=== PATIENT | male | born 2000 | race Caucasian/White ===

== ENCOUNTER 2023-08-29 19:50 | Emergency (ER) | payer MEDICAID, SELFPAY ==
[2023-08-29 20:08] VITALS: BP 157/90; PULSE 124; TEMP 38.5; O2SAT 97; BMI 30.5
--- NOTE | 2023-08-29 20:15 | ED.SKABFB1 ---
HPI - Skin/Abscess/Foreign Bdy General Chief complaint: Skin/Abscess/Foreign Body Stated complaint: Rash Time Seen by Provider: 08/29/23 20:09 History of Present Illness HPI narrative: patient presents complaining of swelling and redness of his left FA after he was stung by bee yesterday. States the swelling and redness have increased. no fever also states he noticed an infected ingrown hair right inguinal area yesterday. Waited to see if it would improve. It has not so he wants it evaluated as well. No abdominal pain or systemic sypmtoms Related Data Allergies Allergy/AdvReac Type Severity Reaction Status Date / Time bee pollen Allergy Redness of Verified 08/29/23 20:08 Skin Review of Systems ROS Status of ROS 10 or more systems reviewed and unremarkable except as noted in history and below Exam Constitutional Vital Signs, click to edit/add: Last Vital Signs Temp 100.8 F H 08/29/23 21:07 Pulse 124 H 08/29/23 20:08 Resp 20 08/29/23 20:08 BP 157/90 H 08/29/23 20:08 Pulse Ox 97 08/29/23 20:08 O2 Del Method Room Air 08/29/23 20:08 Common normals: no apparent distress, average body habitus, oriented x3, no limitations, healthy appearing, alert and well nourished [facility] Common normals: normocephalic and head/scalp atraumatic Eye Common normals: PERRL, EOMs intact bilaterally and conjunctivae normal Respiratory Common normals: normal respiratory effort, no retractions, no use of accessory muscles and clear to auscultation bilaterally Cardio Common normals: regular rate, regular rhythm, S1 normal heart sound and S2 normal heart sound Other: right groin near buttocks has superficial abscess that is firm and not fluctuant Extremity Extremity image (front): 1. erythema , tenderness and swelling Neuro Common normals: oriented x3, CN's II-XII intact bilaterally, moves all extremities and no focal motor deficits Psych Appearance: grossly normal Course Vital Signs Vital signs: Vital Signs Temperature 101.3 F H 08/29/23 20:08 Pulse Rate 124 H 08/29/23 20:08 Respiratory Rate 20 08/29/23 20:08 Blood Pressure 157/90 H 08/29/23 20:08 Pulse Oximetry 97 08/29/23 20:08 Oxygen Delivery Method Room Air 08/29/23 20:08 Temperature 100.8 F H 08/29/23 21:07 Pulse Rate 124 H 08/29/23 20:08 Respiratory Rate 20 08/29/23 20:08 Blood Pressure 157/90 H 08/29/23 20:08 Pulse Oximetry 97 08/29/23 20:08 Oxygen Delivery Method Room Air 08/29/23 20:08 MDM - Skin/Abscess/Foreign Bdy MDM Narrative Medical decision making narrative: patient presents with localized reaction to bee sting left forearm. may just be allergic but also has the appearance of cellulitis. Additionally he has an early abscess right groin near his buttocks that is separate from the bee sting. IV established, labs drawn and patient medicated with Solumedrol and Clindamycin patient discharged. Advised to bathe rather than shower as this can help treat the abscess. Return if abscess enlarges and becomes more pain as it may need to be incised Lab Data Labs: Lab Results 08/29/23 Range/Units 20:15 WBC 16.9 H (4.0-11.0) 10^3/uL RBC 5.27 (4.70-6.10) 10^6/uL Hgb 15.5 (14.0-18.0) g/dL Hct 44.9 (42.0-54.0) % MCV 85.2 (80.0-94.0) fL MCH 29.4 (25.9-34.0) pg MCHC 34.5 (29.9-35.2) g/dL RDW 12.1 (11.0-15.0) % Plt Count 272 (150-450) 10^3/uL MPV 9.7 (9.5-13.5) fL Neut % (Auto) 77.5 H (43.0-75.0) % Lymph % (Auto) 14.0 L (20.5-60.0) % [place] % (Auto) 7.5 (1.7-12.0) % Eos % (Auto) 0.1 L (0.9-7.0) % Baso % (Auto) 0.3 (0.2-2.0) % Neut # (Auto) 13.1 H (1.4-6.5) 10^3/uL Lymph # (Auto) 2.4 (1.2-3.8) 10^3/uL [place] # (Auto) 1.3 H (0.3-0.8) 10^3/uL Eos # (Auto) 0.0 (0.0-0.7) 10^3/uL Baso # (Auto) 0.1 (0.0-0.1) 10^3/uL Abs Immat Gran (auto) 0.10 H (0.00-0.03) 10^3/uL Imm/Tot Granulo (auto) 0.6 H (0.0-0.5) % Sodium 135 L (136-145) mmol/L Potassium 3.6 (3.5-5.1) mmol/L Chloride 102 (98-107) mmol/L Carbon Dioxide 22.9 (21.0-32.0) mmol/L Anion Gap 13.7 BUN 25.0 H (7.0-18.0) mg/dL Creatinine 1.32 H (0.70-1.30) mg/dL Est GFR ( Amer) >60 (>=60) Est GFR (Non-Af Amer) >60 (>=60) BUN/Creatinine Ratio 18.9 Glucose 110 H (74-106) mg/dL Calcium 9.7 (8.5-10.1) mg/dL Discharge Plan Discharge Stand Alone Forms: Portal Instructions Chief Complaint: Skin/Abscess/Foreign Body Clinical Impression: Insect bites, Abscess of skin or subcutaneous tissue Patient Disposition: Home, Self-Care Print Language: Croatian Instructions: Insect Bite or Sting (ED), Abscess (ED) Additional Instructions: have wound rechecked in 2 -3 days Referrals: LIVIER BAEZA [Primary Care Provider] - 1 week
[2023-08-29 20:31] LABS: Basophils Absolute Auto 0.1 10^3/uL (0.0-0.1); Basophils Percent Auto 0.3 % (0.2-2.0); Eosinophils Percent Auto 0.1 % (0.9-7.0); Hematocrit 44.9 % (42.0-54.0); Hemoglobin 15.5 g/dL (14.0-18.0); Immature Granulocytes Pct Auto 0.6 % (0.0-0.5); Lymphocytes Absolute Auto 2.4 10^3/uL (1.2-3.8); Mean Corpuscular HGB Conc 34.5 g/dL (29.9-35.2); Mean Corpuscular Hemoglobin 29.4 pg (25.9-34.0); Mean Corpuscular Volume 85.2 fL (80.0-94.0); Mean Platelet Volume 9.7 fL (9.5-13.5); Monocytes Absolute Auto 1.3 10^3/uL (0.3-0.8); Monocytes Percent Auto 7.5 % (1.7-12.0); Neutrophils Absolute Auto 13.1 10^3/uL (1.4-6.5); Neutrophils Percent Auto 77.5 % (43.0-75.0); Platelet Count 272 10^3/uL (150-450); Red Blood Count 5.27 10^6/uL (4.70-6.10); Red Cell Distribution Width 12.1 % (11.0-15.0); White Blood Count 16.9 10^3/uL (4.0-11.0)
[2023-08-29 20:40] LABS: Anion Gap 13.7; BUN Creatinine Ratio 18.9; Calcium 9.7 mg/dL (8.5-10.1); Carbon Dioxide 22.9 mmol/L (21.0-32.0); Chloride 102 mmol/L (98-107); Estimated GFR (African America >60 (>=60); Estimated GFR (Non-African Ame >60 (>=60); Glucose 110 mg/dL (74-106); Potassium 3.6 mmol/L (3.5-5.1); Sodium 135 mmol/L (136-145)
[2023-08-29] MEDS: CLINDAMYCIN PHOSPHATE/D5W 900 MG/50 ML PIGGYBACK 100 MG IV (21:05)
[2023-08-29] MEDS: METHYLPREDNISOLONE SOD SUCC PF 125 MG/2 ML VIAL IVP (21:06)
[2023-08-29 21:07] VITALS: TEMP 38.2
== END 2023-08-29 21:54 | disposition home or self-care (01) ==
PROVIDERS: Emergency Provider Internal Medicine; PCP Family Medicine
DX: T63.441A Toxic effect of venom of bees, accidental (unintentional), initial encounter (principal); L02.214 Cutaneous abscess of groin
CPT/HCPCS: 36415; 80048; 85025; 99284; J0736; J2919